=== PATIENT | male | born 1955 | race Caucasian/White ===

== ENCOUNTER 2018-03-24 20:58 | Observation (INO) | payer OTHER ==
[~2018-03-24] VITALS: Ht 172.7 cm; Wt 62.9 kg
[~2018-03-24 20:58] MED LIST: ALBU90OI61 INH; CYCL10 PO; Cleocin HCl300 MG PO; DULO30 PO; Depo-Medro80 MG/1 ML IJ; FERR325 PO; HYDR1TAB94 PO; IBUP400 PO; LEVSOD50 PO; LISI5 PO; METO25; Omeprazole20 M1 PO; PENVK500 PO; PERIDEX15 ML PO; Percocet 5-3251 EACH PO; SILD50TA PO
[2018-03-24 21:38] LABS: BASOPHILS ABSOLUTE AUTO 0.02 K/mm3 (0.00-0.23); BASOPHILS PERCENT AUTO 0 % (0-2); EOSINOPHILS PERCENT AUTO 0 % (0-6); Hematocrit 41.6 % (37.0-53.0); Hemoglobin 14.4 g/dL (13.5-17.5); IMMATURE GRAN ABSOLUTE AUTO 0.08 K/mm3 (0.00-0.10); IMMATURE GRAN PERCENT AUTO 1 % (0-1); LYMPHOCYTES ABSOLUTE AUTO 1.05 K/mm3 (0.84-5.20); LYMPHOCYTES PERCENT AUTO 8 % (21-46); MONOCYTES ABSOLUTE AUTO 0.72 K/mm3 (0.16-1.47); MONOCYTES PERCENT AUTO 6 % (4-13); Mean Corpuscular HGB 32.7 pg (26.0-34.0); Mean Corpuscular HGB Conc 34.6 g/dL (31.5-36.5); Mean Corpuscular Volume 95 fL (80-100); Mean Platelet Volume 9.2 fL (9.1-12.4); NEUTROPHILS ABSOLUTE AUTO 11.18 K/mm3 (1.96-9.15); NEUTROPHILS PERCENT AUTO 86 % (41-73); Platelet Count 479 K/mm3 (150-400); RDW Coefficient Variation 13.6 % (11.7-14.2); RDW Standard Deviation 47.4 fL (35.1-46.3); White Blood Cell Count 13.05 K/mm3 (4.00-11.30)
[2018-03-24 21:45] LABS: Calcium, Ionized (POC) 1.06 mmol/L (1.10-1.46); Chloride (POC) 89 mmol/L (98-108); Creatinine (POC) 1.9 mg/dL (0.8-1.3); Glucose (ISTAT POC) 219 mg/dL (70-99); Hemoglobin (POC) 15.6 g/dL (13.5-17.5); Potassium (POC) 3.7 mmol/L (3.5-5.5); Sodium (POC) 129 mmol/L (135-148); Total CO2 (POC) 17 mmol/L (21-32)
[2018-03-24 21:56] LABS: Albumin/Globulin Ratio 0.9 (0.8-1.8); Bilirubin, Total 1.2 mg/dL (0.1-1.0); Bun/Creatinine Ratio 11.1 (12.0-20.0); Calcium, Blood 9.6 mg/dL (8.5-10.1); Creatinine, Blood 1.89 mg/dL (0.60-1.20); Globulin, Blood 4.6 g/dL (2.2-4.0); Magnesium, Blood 1.5 mg/dL (1.6-2.4); Potassium, Blood 3.7 mmol/L (3.5-5.5); Total Protein, Blood 8.6 g/dL (6.4-8.2); Troponin I 0.019 ng/mL (0.000-0.040)
[2018-03-24 23:05] LABS: Base Excess Venous 1.6 mmol/L; Bicarbonate Venous 26.1 mmol/L (24.0-30.0); PCO2 Venous 34.2 mmHg (38-42); PO2 Venous 87.1 mmHg (38-42); pH Blood Venous 7.48 (7.34-7.37)
[2018-03-24 23:58] LABS: Source, Urine Voided
[2018-03-25 00:06] LABS: Bilirubin, Urine Neg (Neg); Blood, Urine 1+ (Neg); Glucose Qualitative, Urine Neg (Neg); Ketones, Urine 2+ (Neg); Leukocyte Esterase, Urine Neg (Neg); Nitrite, Urine Neg (Neg); Protein, Urine 2+ (Neg); Specific Gravity, Urine 1.015 (1.003-1.022); Urobilinogen, Urine NORM (Normal)
[2018-03-25 00:10] LABS: Appearance, Urine Clear (Clear); Color, Urine Yellow (P-Yellow)
[2018-03-25 00:14] LABS: Amorphous Light (0-Heavy); Bacteria Mod /hpf; Squamous Epithelial Cells Not Seen /hpf (Few); White Blood Cells, Urine 0-2 /hpf (0-5)
[2018-03-25 00:17] LABS: U Amphetamine Screen Not Detected; U Barbituate Screen Not Detected; U Benzodiazapine Screen Not Detected; U Buprenorphine Screen Not Detected; U Cannabinoids Screen DETECTED; U Cocaine Screen Not Detected; U Methadone Screen Not Detected; U Methamphetamine Screen Not Detected; U Opiates Screen Not Detected; U Oxycodone Screen Not Detected; U Phencyclidine Screen Not Detected; U Propoxyphene Screen Not Detected
[2018-03-25 01:49] LABS: CPK Creatine Kinase 232 U/L (39-308)
--- NOTE | 2018-03-25 02:51 | NUR ---
ADMISSION: PATIENT ARRIVED TO U7 AT APPROX 0130 VIA GURNEY FROM ER. PATIENT ABLE TO PIVOT TRANSFER WITH 2 PERSON ASSIST, GAIT IMPAIRED. PATIENT ORIENTED TO SELF ONLY, FOLLOWING COMMANDS BUT NOT RELIABLE SOURCE OF INFORMATION. MAGNESIUM 1.5, LACTIC 4.0, NA 128 MD NOTIFIED AND ORDERS RECIEVED. PATIENT PASSED BEDSIDE SWALLOW, MD NOTIFIED AND ORDERS RECIEVED. NEURO: PATIENT UNABLE TO ANSWER RELIABLY FOR TESTING OF SENSATION OR PERIPHERAL VISION. PATIENT DISPLAYING LEFT SIDED WEAKNESS, LEFT SIDED PRONATOR DRIFT, LEFT FACIAL DROOP, LEFT TONGUE DEVIATION. PATIENT DISPLAYING SLURRED SPEECH BUT DOES NOT HAVE DENTURES IN. PATIENT ABLE TO IDENTIFY OBJECTS CORRECTLY.
[2018-03-25 05:31] LABS: Hematocrit 37.6 % (37.0-53.0); Hemoglobin 13.3 g/dL (13.5-17.5); Mean Corpuscular HGB 33.3 pg (26.0-34.0); Mean Corpuscular HGB Conc 35.4 g/dL (31.5-36.5); Mean Corpuscular Volume 94 fL (80-100); Platelet Count 457 K/mm3 (150-400); RDW Coefficient Variation 13.7 % (11.7-14.2); RDW Standard Deviation 47.3 fL (35.1-46.3); Red Blood Cell Count 3.99 M/mm3 (4.30-5.90); White Blood Cell Count 12.31 K/mm3 (4.00-11.30)
[2018-03-25 05:53] LABS: Albumin, Blood 3.9 g/dL (3.4-5.0); Albumin/Globulin Ratio 0.9 (0.8-1.8); Bilirubin, Total 0.6 mg/dL (0.1-1.0); Bun/Creatinine Ratio 11.9 (12.0-20.0); Calcium, Blood 9.1 mg/dL (8.5-10.1); Creatinine, Blood 2.02 mg/dL (0.60-1.20); Globulin, Blood 4.5 g/dL (2.2-4.0); Potassium, Blood 3.6 mmol/L (3.5-5.5); Total Protein, Blood 8.4 g/dL (6.4-8.2)
--- NOTE | 2018-03-25 06:26 | NUR ---
SHIFT SUMMARY: PATIENT COOPERATIVE THIS SHIFT, 2MG OF MG GIVEN TO REPLACE 1.5MG, LACTIC IMPROVING. BED LOW AND LOCKED WITH EXIT ALARM ON AND CALL LIGHT WITHIN REACH. PATIENT HAS NOT ATTEMPTED TO GET OOB, VSS.
--- NOTE | 2018-03-25 09:35 | NUR ---
PT TO MRI
--- NOTE | 2018-03-25 16:33 | NUR ---
BLADDER SCAN PER ORDERS BLADDER SCAN DONE Q SHIFT. 20ML FOUND IN BLADDER. PT REPORTS DOES NOT PRODUCE MUCH URINE AT BASELINE.
--- NOTE | 2018-03-25 17:30 | NUR ---
SHIFT SUMMARY PT RESTING IN ROOM COMFORTABLY WITH FAMILY AT BEDSIDE. PT HAD NO ACUTE CHANGES IN STATUS TODAY. MRI AND EEG WERE BOTH DONE TODAY. AWAITING RESULTS TO ASSESS FOR POSS DC TOMORROW. PT HAS 500ML BOLUS IV NS INFUSING IN PIV. RESP EVEN UNLABORED. SKINS PWD. NO SEIZURE ACTIVITY TODAY. PT DID NOT PRODUCE ANY URINE TODAY. BLADDER SCAN DONE PER ORDERS. SEE NOTES. PT REPORTS NORMAL. L ARM REMAINS EDEMATOUS. IV REMOVED FROM LW. EDEMA IS NONPITTING. EDEMA HAS NOT INCREASED THS SHIFT. CALL LIGHT IS IN REACH. WILL CONT TO MONITOR.
[2018-03-26 04:22] LABS: Bun/Creatinine Ratio 16.5 (12.0-20.0); Calcium, Blood 8.7 mg/dL (8.5-10.1); Creatinine, Blood 1.7 mg/dL (0.60-1.20); Potassium, Blood 3.1 mmol/L (3.5-5.5)
--- NOTE | 2018-03-26 07:23 | NUR ---
SHIFT SUMMARY PATIENT PLEASENT AND COOPERATIVE THORUGHOUT THE NIGHT. PATIENT APPEARED TO SLEEP WELL WITH NO COMPLAINTS OF PAIN OR DISCOMFORT. VITAL SIGNS CHARTED. WILL CONTINUE TO MONITOR PATIENT AND REPORT TO ONCOMING RN.
[2018-03-26] MEDS ORDERED: LEVE500 PO (08:28)
[2018-03-26] MEDS ORDERED: ASPI81CH PO (08:29)
== END 2018-03-26 12:40 | disposition home or self-care (01) ==
LOC: ER 20:58 → PCU 20:59 → ER 03-25 01:45 → PCU 03-25 01:53 → ER 03-25 01:53 → PCU 03-25 01:53
PROVIDERS: Emergency Medicine; Internal Medicine; ADMIT Internal Medicine
DX: R11.2 Nausea with vomiting, unspecified (principal); G93.40 Encephalopathy, unspecified; N17.9 Acute kidney failure, unspecified; R56.9 Unspecified convulsions; K30 Functional dyspepsia; F17.210 Nicotine dependence, cigarettes, uncomplicated; R79.89 Other specified abnormal findings of blood chemistry; Z88.5 Allergy status to narcotic agent; Z79.899 Other long term (current) drug therapy
CPT/HCPCS: 36415; 51702; 70450; 70544; 71045; 80047; 80048; 80053; 81001; 82010; 82550; 82803; 82947; 83605; 83735; 84145; 84484; 85014; 85025; 85027; 87086; 90686; 93005; 93010; 95819; 96365; 96375; 99285-25; J1650; J1953; J2060; J2405; J3475; J3480; J7030

== ENCOUNTER 2018-12-18 08:29 | Inpatient (IN) | payer OTHER ==
[~2018-12-18] VITALS: Ht 172.7 cm; Wt 58.7 kg
[~2018-12-18 08:29] MED LIST changes: +ASPI81CH PO; +LEVE500 PO
--- NOTE | 2018-12-18 13:05 | NUR ---
History, Chart, Medications and Allergies reviewed before start of procedure. Patient confirms NPO status and agrees with scheduled surgery. Patient States Post-Procedure ride home has been arranged with his girlfriend, Radha.
[2018-12-18] MEDS ORDERED: METO25 PO (13:49)
[2018-12-18] MEDS ORDERED: LEVSOD50 PO (13:50)
[2018-12-18] MEDS ORDERED: DULOXETINE HCL40 MG PO (13:50)
[2018-12-18] MEDS ORDERED: PERIDEX15 ML MM (13:51)
[2018-12-18] MEDS ORDERED: LEVE500 PO (13:51)
[2018-12-18] MEDS ORDERED: HYDR1TAB94 PO (13:52)
[2018-12-18] MEDS ORDERED: IBU800 MG PO (13:53)
[2018-12-18] MEDS ORDERED: ONDA4 PO (13:53)
--- NOTE | 2018-12-18 13:55 | NUR ---
DR RESENDEZ AND DR RAGSDALE SPEAKING WITH PATIENT AND HIS FAMILY/SIGNIFIICANT OTHER ABOUT RESCHEDULING HIS PROCEDURE AFTER A TRACH IS PLACED. PROCEDURE CANCELLED. IV METOPROLOL NOT GIVEN SINCE PROCEDURE CANCELLED.
[2018-12-18] MEDS ORDERED: CYCL10 PO (13:58)
--- NOTE | 2018-12-18 14:48 | NUR ---
REPORT GIVEN TO ANDER JULIAN RN.
--- NOTE | 2018-12-18 16:03 | NUR ---
REPORT GIVEN TO NANDO RN, PATIENT TO TRANSFER TO ROOM 328.
[2018-12-18 18:37] LABS: BASOPHILS ABSOLUTE AUTO 0.06 K/mm3 (0.00-0.23); BASOPHILS PERCENT AUTO 0 % (0-2); EOSINOPHILS ABSOLUTE AUTO 0.02 K/mm3 (0.00-0.68); EOSINOPHILS PERCENT AUTO 0 % (0-6); Hematocrit 33.7 % (37.0-53.0); Hemoglobin 10.9 g/dL (13.5-17.5); IMMATURE GRAN ABSOLUTE AUTO 0.06 K/mm3 (0.00-0.10); IMMATURE GRAN PERCENT AUTO 0 % (0-1); LYMPHOCYTES ABSOLUTE AUTO 1.44 K/mm3 (0.84-5.20); LYMPHOCYTES PERCENT AUTO 9 % (21-46); MONOCYTES ABSOLUTE AUTO 0.82 K/mm3 (0.16-1.47); MONOCYTES PERCENT AUTO 5 % (4-13); Mean Corpuscular HGB 32.7 pg (26.0-34.0); Mean Corpuscular HGB Conc 32.3 g/dL (31.5-36.5); Mean Platelet Volume 9.3 fL (9.1-12.4); NEUTROPHILS ABSOLUTE AUTO 14.43 K/mm3 (1.96-9.15); NEUTROPHILS PERCENT AUTO 86 % (41-73); Platelet Count 547 K/mm3 (150-400); RDW Coefficient Variation 16.9 % (11.7-14.2); RDW Standard Deviation 62.6 fL (35.1-46.3); Red Blood Cell Count 3.33 M/mm3 (4.30-5.90); White Blood Cell Count 16.83 K/mm3 (4.00-11.30)
[2018-12-18 18:38] LABS: Mean Corpuscular Volume 101 fL (80-100)
[2018-12-18 18:56] LABS: Albumin, Blood 3.2 g/dL (3.4-5.0); Anion Gap 7 mmol/L (6-16); Blood Urea Nitrogen 23 mg/dL (8-24); Bun/Creatinine Ratio 30.2 (12.0-20.0); CO2, Blood 25 mmol/L (21-32); Calcium, Blood 11.2 mg/dL (8.5-10.1); Chloride, Blood 100 mmol/L (98-108); Creatinine, Blood 0.76 mg/dL (0.60-1.20); Glomerular Filtration Rate >60 (60-); Glucose, Blood 96 mg/dL (70-99); Phosphorus, Blood 2.4 mg/dL (2.5-4.9); Sodium, Blood 132 mmol/L (136-145)
--- NOTE | 2018-12-18 19:00 | NUR ---
SHIFT SUMMARY 1620 RECEIVED PT TO FROM DAY SX. 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 PT TO RECEIVE RADIATION FOR TUMOR AND WILL NEED PEG TUBE PLACEMENT FOR NUTRITIONAL TX. PER REPORT, ANESTHESIA SAID PT TO HIGH RISK DUE TO TUMOR. ORDERS TO CONSULT DR OBANDO FOR TRACHEOSTOMY, BUT TOLD BY ANS THAT DR OBANDO DOES NOT DO CONSULTS. DR GEE NOTIFIED. PT NPO D/T "EVERYTHING HE SWALLOWS GOES INTO HIS LUNGS", PER GIRL FRIEND. PT STILL SMOKING 1/2-1/3 PK/DAY. ALL MEDS TO BE GIVEN IV AT THIS TIME. PT REPORTED NO BM X4 DAYS. DR GEE INFORMED, SUPPOSITORY ORDERED. SWABS AND LIP BALM GIVEN FOR PT COMFORT. MULTIPLE FAMILY IN SINCE ADMISSION. NO C/O. CALL LT IN REACH.
[2018-12-19 05:11] LABS: BASOPHILS ABSOLUTE AUTO 0.06 K/mm3 (0.00-0.23); BASOPHILS PERCENT AUTO 0 % (0-2); EOSINOPHILS ABSOLUTE AUTO 0.02 K/mm3 (0.00-0.68); EOSINOPHILS PERCENT AUTO 0 % (0-6); Hemoglobin 9.7 g/dL (13.5-17.5); IMMATURE GRAN ABSOLUTE AUTO 0.12 K/mm3 (0.00-0.10); IMMATURE GRAN PERCENT AUTO 1 % (0-1); LYMPHOCYTES ABSOLUTE AUTO 1.46 K/mm3 (0.84-5.20); LYMPHOCYTES PERCENT AUTO 7 % (21-46); MONOCYTES ABSOLUTE AUTO 1.23 K/mm3 (0.16-1.47); MONOCYTES PERCENT AUTO 6 % (4-13); Mean Corpuscular HGB 32.4 pg (26.0-34.0); Mean Corpuscular HGB Conc 32.3 g/dL (31.5-36.5); Mean Corpuscular Volume 100 fL (80-100); Mean Platelet Volume 9.3 fL (9.1-12.4); NEUTROPHILS ABSOLUTE AUTO 17.54 K/mm3 (1.96-9.15); NEUTROPHILS PERCENT AUTO 86 % (41-73); Platelet Count 520 K/mm3 (150-400); RDW Coefficient Variation 16.8 % (11.7-14.2); RDW Standard Deviation 61.8 fL (35.1-46.3); Red Blood Cell Count 2.99 M/mm3 (4.30-5.90); White Blood Cell Count 20.43 K/mm3 (4.00-11.30)
--- NOTE | 2018-12-19 05:19 | NUR ---
SHIFT SUMMARY NO ISSUES NOTED. PT HAS SLEPT SINCE FAMILY LEFT FOR THE NIGHT. PT HAS REMAINED NPO. PT CURRENTLY SLEEPING AND BREATHING EASY. CALL LIGHT IN REACH.
[2018-12-19 05:50] LABS: Anion Gap 8 mmol/L (6-16); Blood Urea Nitrogen 22 mg/dL (8-24); Bun/Creatinine Ratio 32.8 (12.0-20.0); CO2, Blood 23 mmol/L (21-32); Calcium, Blood 10.3 mg/dL (8.5-10.1); Chloride, Blood 103 mmol/L (98-108); Creatinine, Blood 0.67 mg/dL (0.60-1.20); Glomerular Filtration Rate >60 (60-); Glucose, Blood 103 mg/dL (70-99); Sodium, Blood 134 mmol/L (136-145)
--- NOTE | 2018-12-19 19:46 | NUR ---
DISCHARGE SUMMARY: PATIENT SLEPT MUCH OF THE DAY. PATIENT REPORTED RELIEF FROM BACK PAIN WITH LIDOCAINE PATCH AND K-PAD. PATIENT DENIED URGE TO VOID THIS MORNING. BLADDER SCAN WAS OVER 500. NOTIFIED DR. MCNALLY. NEW ORDER FOR PRN STRAIGHT CATH. PRIOR TO PLACING CATH, PATIENT ABLE TO AMBULATE TO THE RESTROOM AND VOID 450 OF DARK YELLOW URINE. AT THE END OF SHIFT, PATIENT'S BLADDER SCAN WAS 324. PATIENT DENIED NEED TO VOID. PATIENT HAS HAD INTERMITTANT FEVER, WITH THE HIGHEST AT 100.7. PATIENT DENIED DISCOMFORT. TEMPERATURE DECREASED TO 98.5 BY DECREASING ROOM TEMPERATURE AND REMOVING BLANKET. PATIENT REFUSED SUPPOSITORY. PATIENT IS CALM AND COOPERATIVE. HE IS AWARE OF AND IN AGREEMENT OF THE PLAN FOR HIS PEG PLACEMENT. NURSING NOTIFY NOTE PLACED FOR RN ON FRIDAY TO CALL IN ENT CONSULTATION. (DR. OBANDO WILL NOT ACCEPT CONSULTATION UNTIL HE IS ON-CALL).
[2018-12-20 06:03] LABS: BASOPHILS ABSOLUTE AUTO 0.07 K/mm3 (0.00-0.23); BASOPHILS PERCENT AUTO 1 % (0-2); EOSINOPHILS ABSOLUTE AUTO 0.11 K/mm3 (0.00-0.68); EOSINOPHILS PERCENT AUTO 1 % (0-6); Hematocrit 30.5 % (37.0-53.0); IMMATURE GRAN PERCENT AUTO 1 % (0-1); LYMPHOCYTES ABSOLUTE AUTO 1.29 K/mm3 (0.84-5.20); LYMPHOCYTES PERCENT AUTO 10 % (21-46); MONOCYTES ABSOLUTE AUTO 0.88 K/mm3 (0.16-1.47); MONOCYTES PERCENT AUTO 7 % (4-13); Mean Corpuscular HGB 33.1 pg (26.0-34.0); Mean Corpuscular HGB Conc 32.8 g/dL (31.5-36.5); Mean Corpuscular Volume 101 fL (80-100); Mean Platelet Volume 9.4 fL (9.1-12.4); NEUTROPHILS ABSOLUTE AUTO 11.09 K/mm3 (1.96-9.15); NEUTROPHILS PERCENT AUTO 82 % (41-73); Platelet Count 509 K/mm3 (150-400); RDW Coefficient Variation 16.9 % (11.7-14.2); RDW Standard Deviation 62.9 fL (35.1-46.3); Red Blood Cell Count 3.02 M/mm3 (4.30-5.90); White Blood Cell Count 13.54 K/mm3 (4.00-11.30)
[2018-12-20 06:26] LABS: Albumin, Blood 2.4 g/dL (3.4-5.0); Anion Gap 9 mmol/L (6-16); Blood Urea Nitrogen 18 mg/dL (8-24); Bun/Creatinine Ratio 30.9 (12.0-20.0); CO2, Blood 23 mmol/L (21-32); Calcium, Blood 9.7 mg/dL (8.5-10.1); Chloride, Blood 105 mmol/L (98-108); Creatinine, Blood 0.58 mg/dL (0.60-1.20); Glomerular Filtration Rate >60 (60-); Glucose, Blood 83 mg/dL (70-99); Phosphorus, Blood 1.7 mg/dL (2.5-4.9); Potassium, Blood 3.7 mmol/L (3.5-5.5); Sodium, Blood 137 mmol/L (136-145)
--- NOTE | 2018-12-20 06:26 | NUR ---
SHIFT SUMMARY NO ACUTE CHANGES OVERNIGHT. PATIENT NPO. IV PATENT. PATIENT STATED HE WOULD URINATE IN THE MORNING WHEN HE WAS READY TO WAKE UP AND REFUSED BLADDER SCAN. WILL CONTINUE TO MONITOR AND REPORT TO ONCOMING RN.
--- NOTE | 2018-12-20 18:16 | NUR ---
SHIFT SUMMARY PT AXO, PLEASANT AND COOPERATIVE WITH CARE. COMPLAINED OF THROAT AND JAW PAIN, MEDICATED PER EMAR WITH LITTLE EFFECT. THIS NURSE CALLED DR. GEE TO DISCUSS PAIN MEDICATION, SEE ORDERS. PT EDUCATED ON IDICATION OF NPO STATUS AND PAIN CONTROL. SUCTION SET UP IN PT ROOM, PT SUCTIONING INDEPENDETLY PRN WITH A MODERATE AMOUNT OF YELLOW, THICK SECRETIONS OUT. IV PATENT AND INFUSING PER EMAR. PT VOIDED ONCE THIS SHIFT AND PVR WAS NOT MEASURED AT THAT TIME. PT REFUSES TO ATTEMPT TO URINATE AT THIS TIME. SINUS RHYTHM WITH PVC'S AT 83 PER FILM TECHNICIAN. BED IN LOW POSITION, CALL LIGHT WITHIN REACH. UP WITH 1 ASSIST TO BATHROOM.
--- NOTE | 2018-12-21 05:03 | NUR ---
SHIFT SUMMARY PLAN IS FOR PT TO HAVE TRACH PLACED BEFORE PEG TUBE CAN BE PLACED. DR OBANDO WILL NEED TO BE CONSULTED TODAY BY DAYSHIFT RN, DOES NOT ALLOW OVERNIGHT/WEEKEND CALLS. WILL PASS OFF IN REPORT. PT IS A&OX4, 1 PER ASSIST TO BR. BLADDER SCAN 120 ML AFTER VOID. NO STRAIGHT CATH INDICATED. NPO, PT USING SWABS AND SUCTIONING INDEPENDENTLY. PT C/O 10/10 JAW PAIN, 50 MCG FENTANYL Q4H, PROVIDES SOME RELIEF. CLINIMIX @ 75 ML/HR. WILL CONT TO MONITOR AND PROVIDE CARE UNTIL PRESUMED BY ONCOMING RN.
[2018-12-21 05:37] LABS: BASOPHILS ABSOLUTE AUTO 0.08 K/mm3 (0.00-0.23); BASOPHILS PERCENT AUTO 1 % (0-2); EOSINOPHILS ABSOLUTE AUTO 0.18 K/mm3 (0.00-0.68); EOSINOPHILS PERCENT AUTO 2 % (0-6); Hematocrit 30.4 % (37.0-53.0); Hemoglobin 9.9 g/dL (13.5-17.5); IMMATURE GRAN ABSOLUTE AUTO 0.09 K/mm3 (0.00-0.10); IMMATURE GRAN PERCENT AUTO 1 % (0-1); LYMPHOCYTES ABSOLUTE AUTO 1.54 K/mm3 (0.84-5.20); LYMPHOCYTES PERCENT AUTO 15 % (21-46); MONOCYTES ABSOLUTE AUTO 0.84 K/mm3 (0.16-1.47); MONOCYTES PERCENT AUTO 8 % (4-13); Mean Corpuscular HGB Conc 32.6 g/dL (31.5-36.5); Mean Platelet Volume 9.2 fL (9.1-12.4); NEUTROPHILS ABSOLUTE AUTO 7.76 K/mm3 (1.96-9.15); NEUTROPHILS PERCENT AUTO 74 % (41-73); Platelet Count 527 K/mm3 (150-400); RDW Coefficient Variation 16.4 % (11.7-14.2); RDW Standard Deviation 59.2 fL (35.1-46.3); Red Blood Cell Count 3.09 M/mm3 (4.30-5.90); White Blood Cell Count 10.49 K/mm3 (4.00-11.30)
[2018-12-21 05:40] LABS: Mean Corpuscular Volume 98 fL (80-100)
[2018-12-21 05:57] LABS: Albumin, Blood 2.3 g/dL (3.4-5.0); Anion Gap 7 mmol/L (6-16); Blood Urea Nitrogen 14 mg/dL (8-24); Bun/Creatinine Ratio 26.8 (12.0-20.0); CO2, Blood 25 mmol/L (21-32); Calcium, Blood 9.7 mg/dL (8.5-10.1); Chloride, Blood 102 mmol/L (98-108); Creatinine, Blood 0.52 mg/dL (0.60-1.20); Glomerular Filtration Rate >60 (60-); Glucose, Blood 117 mg/dL (70-99); Phosphorus, Blood 1.9 mg/dL (2.5-4.9); Potassium, Blood 3.5 mmol/L (3.5-5.5); Sodium, Blood 134 mmol/L (136-145)
--- NOTE | 2018-12-21 08:52 | NUR ---
DR. OBANDO'S OFFICE NOTIFIED OF REFERAL.
--- NOTE | 2018-12-21 10:28 | NUR ---
Met with patient to review need. Pt maun complaint right now is constipation. He denies headaches or blurred vision pt very hard of hearing and speaking is labored. He sates he has constant pain to mouth and throat. no nausea, pt states he is able to sleep well. Pt demonstrated understanding of plan of care and consult with doctor Nichole. pt states he has a will and POA and directives at home. He states his family is aware of the consult. will follow up with family and complet a polst with patient. After speaking with patient best plan is to have family present when polst completed.
--- NOTE | 2018-12-21 10:38 | NUR ---
attetmpted to call family no answer
--- NOTE | 2018-12-21 18:18 | NUR ---
SHIFT SUMMARY. A&OX3, DIFFICULT TO UNDERSTANDING SOME WORDS SECONDARY TO PAST JAW SURGERY. PT IS COOPERTIVE AND PLEASANT. PT WITH CONSTANT JAW AND BACK PAIN, PT REPORTS MODERATE RELIEF WITH LIDOCAINE PATCH TO BACK AND NECK AND IV FENTANYL. NO N/V, PT WITH SOB WITH EXERTION, RA. PT HAD LG BM THIS AFTERNOON, PT RECIEVED BISACODYL SUPPOSITORY THIS MORNING. DR. OBANDO IN TO CONSULT THIS AFTERNOON, RECIEVED CALL FROM HIS OFFICE THAT HE IS PLANNING ON SURGERY ON ABOUT 1200. FAMILY WAS AT BEDSIDE AT TIME OF CONSULT.
--- NOTE | 2018-12-22 05:03 | NUR ---
SHIFT SUMMARY PLAN IS FOR PT TO HAVE TRACH PROCEDURE DONE FRIDAY. PT STRICT NPP, RECIEVING CLINIMIX @ 75 ML/HR. MOUTH SWABS AND SUCTIONS INDEPENDENTLY PRN. TELE IN PLACE; NSR c PVCs @ 76 BPM. PVR 125 ML, NO STRAIGHT CATH INDICATED. 50 MCG FENTANYL ADMINSITERED Q4H FOR JAW PAIN. WILL CONT TO MONITOR AND PROVIDE CARE UNTIL PRESUMED BY ONCOMING RN.
--- NOTE | 2018-12-22 19:07 | NUR ---
SHIFT SUMMARY. PT C/O PAIN TO BACK, NECK, AND JAW THAT IS CONSTANT THROUGHOUT SHIFT, PT REPORTS RELIEF WITH CURRENT ORDERS. PT REPORTS MILD SOB WITH EXERTION, PT WITH INCREASED WEAKNESS AFTER SHOWER THIS AFTERNOON REQUIRING SITTING BREAK FROM BATHROOM TO BED. NO N/V. LOVENOX HELD THIS AM PT IS SCHEDULED FOR SURGERY TOMORROW. NO NEW CHANGES OR CONCERNS.
--- NOTE | 2018-12-23 06:01 | NUR ---
SHIFT SUMMARY PLAN FOR PT TO UNDERGO TRACHEOSTOMY TODAY AT NOON. PT STRICT NPO, SUCTIONING AND MOUTH SWABS INDEPENDENTLY. CLINIMIX RUNNING @ 75 ML/HR. PT REPORTS CONSTANT PAIN TO JAW, NECK, BACK. 50 MCG FENTANYL Q4H GIVEN, PROVIDES ADEQUATE RELIEF. VOIDS SEVERAL TIMES TONIGHT, PVR <100 ML. RESP E/U ON RA, VSS, AFEBRILE. DENIES ANY N/V/D. WILL CONT TO MONITOR AND PROVIDE CARE UNTIL PRESUMED BY ONCOMING RN.
--- NOTE | 2018-12-23 11:15 | NUR ---
INTO SDS VIA BED. PT A&OX3. DENIES PAIN AT THIS TIME. BP 172/107- MADE AWARE-NO NEW ORDERS AT THIS TIME. LUNGS COARSE T/O, BUT MAINTAINING SATS>90% ON RA. DR. WU AWARE OF ADVENTITIOUS LUNG SOUNDS. HISTORY AND ALLERGIES REVIEWED. NPO STATUS CONFIRMED. PT TO GO TO ICU POST OP-NURSING POLLUTION CONTROL ENGINEER CONTACTED FOR BED PLACEMENT.
--- NOTE | 2018-12-23 11:30 | NUR ---
PT LEFT UNIT AT 11:10 VIA GURNEY TO OR.
--- NOTE | 2018-12-23 12:47 | NUR ---
12/23/18 [place] PATIENT ON SCHEDULED ABX. DR. OBANDO INJECTED 2 CC'S 1% LIDOCAINE WITH EPI 1:200,00 AND 1 CC 4% LIDOCAINE INTO NECK BEFORE START OF CASE. ALL COUNTS CORRECT. PATIENT TO HAVE PEG TUBE PLACEMENT AFTER CASE WITH DS PERSONNEL IN ROOM 4.
--- NOTE | 2018-12-23 12:49 | NUR ---
PREPARING FOR PEG TUBE PLASCEMENT PATIENT CONTINUES TO BE MOJNITORED BY ANNESTHESIOLOGIST AFTER TRACHE SURGERY.
--- NOTE | 2018-12-23 12:54 | NUR ---
CALLED REPORT TO ICU 4 NURSE.
--- NOTE | 2018-12-23 14:25 | NUR ---
ASSUMED CARE PT. ARRIVES POST SURGERY. PT. ALERT UPON ARRIVAL TO UNIT. HR IN THE 90S-LOW 100S. HYPERTENSIVE UPON ARRIVAL. PT TRACH #8 SECURED WITH SUTURES. PT HAS HARSH PRODUCTIVE COUGH, THICK YELLOW/RED COLORED SECRETIONS SUCTIONED. PT. PLACED ON T PIECE UPON ARRIVAL WITH FLOW AT 28%, PT SPO2 98-100%. SOME OOZING FROM SUTURE SITES ON TRACH, CLEANED AND GAUZE PLACED. PT. LS COARSE IN THE BASES UPON ARRIVAL. PEG TUBE ALSO PLACED IN OR, CLAMPED FOR [address] RESENDEZ. PLANS FOR TRICKLE FEED TO BE STARTED THIS PM. PT MAE. GARCIAGGER IN PLACE DUE TO LOW TEMP UPON ARRIVAL FROM OR. WILL CONTINUE TO MONITOR CLOSELY. OBTURATOR PLACED AT BEDSIDE. CALL LIGHT IN REACH.
--- NOTE | 2018-12-23 15:38 | NUR ---
PT FAMILY AT BEDSIDE, UPDATED ON PT CONDITION. PT. PROVIDED ORAL SUCTION SO PT CAN SUCTION SELF. COPIOUS AMOUNT OF SECRETIONS NOTED BOTH FROM TRACH AND ORAL. PT. PROVIDED WITH CLIP BOARD AND PAPER FOR COMMUNICATION. PT. WRITING ON PAPER THAT HE IS IN PAIN. CALL TO DR. GEE FOR ADDITIONAL PAIN MEDICATIONS. VSS. CALL LIGHT IN REACH.
--- NOTE | 2018-12-23 18:35 | NUR ---
SHIFT SUMMARY PT REMAINS ALERT POST SURGERY. ANSWERS QUESTIONS BY SHAKING HEAD YES AND NO AND WRITING ON PAPER. PT. LS COARSE T/O LARGE AMOUNT OF THICK YELLOW/RED SECRETIONS NOTED FROM TRACH HOWEVER HAVE REDUCED SINCE ARRIVAL. PT. USES CALL LIGHT NEEDED. VSS T/O SHIFT. MED TWICE FOR PAIN. CALL LIGHT AND ORAL SUCTION AT BEDSIDE.
--- NOTE | 2018-12-23 19:30 | NUR ---
[place] of Care: Care assumed at 1900hr. Patient alert, sitting upright in bed watching tv. Patient unable to verbalize, but able to nod head yes/no, and write needs on paper. New trach #8 placed today, appears wnl. Trach appliance sutured in place, minimal serosanguineous drainage noted around appliance. T-peice connected to trach with humidified air, 28% FiO2, O2- 96-98%, patient denies dyspnea/SOB. Patient c/o pain to neck/trach, effectively managed with prn fentanyl. PEG tube to mid-ABD, dressing C/D/I. Voided using urinal in bed without difficulty. Peripheral IV x2 to rt arm patent and intact. Call light in reach, makes needs known. Will continue to monitor for pain, safety, comfort.
--- NOTE | 2018-12-24 05:58 | NUR ---
Shift Summary: Patient slept well throughout shift. T-peice to trach switched to humidified air only by RT Thanh early in shift, O2% remained 95-98%. Patient continues to deny dyspnea/SOB. Very scant amount of thick blood tinged secretions noted from trach. Trach stoma drainage slowed throughout shift, now only scant amount of serosanguineous drainage, remains sutured and in place. PEG tube remains patent and intact, flushed with 30-60ml H2O x2 this shift. Voided using urinal x1 this shift for 500ml, denies further need to void at this time. Peripheral IV's remain patent and intact. Call light in reach, makes needs known. Will continue to monitor until report to day shift RN.
--- NOTE | 2018-12-24 07:57 | NUR ---
ASSUMED CARE PT. REMAINS ALERT THIS AM. SHAKES HEAD YES TO PAIN AND POINTS TO TRACH. MED PER ORDER FOR PAIN. MINIMAL SECRETIONS NOTED THIS AM ORALLY AND SMALL AMOUNT OF THICK RED TINGED, YELLOW SECRETIONS FROM TRACH. PT. REMAINS ON T-PIECE THIS AM ON RA, WITH HUMIDIFIED AIR. PT. ABLE TO REPOSITION SELF IN BED NEEDED FOR COMFORT. VOIDS USING THE URNIAL. VSS THIS AM. CALL LIGHT IN REACH.
--- NOTE | 2018-12-24 07:59 | NUR ---
DR. RESENDEZ IN TO SEE PT. PER DR. RESENDEZ OKAY FOR PT TO GO TO SURGICAL FLOOR TODAY. PLANS TO START FEEDING VIA PEG TUBE TODAY.
[2018-12-24 08:30] LABS: Anion Gap 8 mmol/L (6-16); Blood Urea Nitrogen 11 mg/dL (8-24); Bun/Creatinine Ratio 19.1 (12.0-20.0); CO2, Blood 25 mmol/L (21-32); Calcium, Blood 9.8 mg/dL (8.5-10.1); Chloride, Blood 99 mmol/L (98-108); Creatinine, Blood 0.58 mg/dL (0.60-1.20); Glomerular Filtration Rate >60 (60-); Glucose, Blood 93 mg/dL (70-99); Phosphorus, Blood 2.1 mg/dL (2.5-4.9); Potassium, Blood 3.5 mmol/L (3.5-5.5); Sodium, Blood 132 mmol/L (136-145)
--- NOTE | 2018-12-24 09:20 | NUR ---
SPOKE WITH DR. OBANDO REGADING STATUS CHANGE FOR PT PER DR. OBANDO PT TO BE PCU STATUS, FOR CLOSE AIRWAY MONITORING.
--- NOTE | 2018-12-24 09:50 | NUR ---
TUBE FEEDING STARTED VIA PEG TUBE ISOSOURCE 1.5 AT 15ML/HR
--- NOTE | 2018-12-24 11:03 | NUR ---
REPORT TO WINDOW SHADE CLOTH SEWER, PT TO TRANSFER TO PCU ROOM 10. PT AND FAMILY AWARE. PT. VSS. ALL BELONGINGS TAKEN TO PCU.
--- NOTE | 2018-12-24 14:41 | NUR ---
ASSUMED CARE OF PATIENT FROM ICU- Patient arrives to PCU in stable condition, alert & aware of surroundings, family with patient during transfer. Oriented to room, call light, staff. TF running at 15mls/hour continuous. Trach with humidified room air, [place] suction placed within patient's reach per ICU, RN suctions own oral secretions. 1245-Patient was medicated with Fentanyl approx. 25 minutes ago, reports pain 7/10 based on Faces scale on eraser board. Will give [place] per PEG and reassess. 1330-Patient reports pain 4/10 on Face scale and is dozing with family at bedside.
--- NOTE | 2018-12-24 18:57 | NUR ---
SHIFT SUMMARY- Patient up in recliner chair for short time per Preceptor, RN then back to bed. No acute changes.
--- NOTE | 2018-12-24 19:33 | NUR ---
GASTRIC RESIDUAL 20 CC. PEG TUBE FLUSHES RAPIDLY TO GRAVITY.
--- NOTE | 2018-12-24 21:30 | NUR ---
APPROX 1900: SHIFT CHANGE, REPORT RECIEVED FROM RUMA HAHN. APPROX 1920 TUBE FEED SET CHANGED, TF RATE INCREASED TO 35 PER MD ORDERS, BLOOD GLUCOSE OBTAINED, RESIDUAL WAS 10ML. BLADDER SCAN COMPLETED PATIENT ADMITTED TO NOT URINATING SINCE 219912/23/18. PATIENT HAD >568ML IN BLADDER PER SCAN, PATIENT WANTED TO TRY URINAL BEFORE ATTEMPTING A CATH.
--- NOTE | 2018-12-24 21:34 | NUR ---
APPROX 2029 PATIENT ABLE TO URINATE 450ML OF TEA COLORED URINE. CREATININE=0.58. MONITORING PATIENT VS,I&O AND MENTATION CAREFULLY.
--- NOTE | 2018-12-25 00:53 | NUR ---
ASSUMED CARE REPORT TAKEN FROM ESEQUIEL HAHN. PT SLEEPING AND NO COMPLAINTS AT THIS TIME.
--- NOTE | 2018-12-25 03:35 | NUR ---
TUBE FEEDING ADJUSTED TUBE FEEDING INCREASED TO 55ML/HR WHICH IS GOAL RATE. PT TOLERATING WELL, SITE LOOKS WNL.
[2018-12-25 04:10] LABS: Anion Gap 7 mmol/L (6-16); Blood Urea Nitrogen 13 mg/dL (8-24); Bun/Creatinine Ratio 19.6 (12.0-20.0); CO2, Blood 26 mmol/L (21-32); Calcium, Blood 9.5 mg/dL (8.5-10.1); Chloride, Blood 99 mmol/L (98-108); Creatinine, Blood 0.66 mg/dL (0.60-1.20); Glomerular Filtration Rate >60 (60-); Glucose, Blood 121 mg/dL (70-99); Magnesium, Blood 1.2 mg/dL (1.6-2.4); Potassium, Blood 3.4 mmol/L (3.5-5.5); Sodium, Blood 132 mmol/L (136-145)
--- NOTE | 2018-12-25 05:12 | NUR ---
SHIFT SUMMARY PT SLEEPING IN ROOM COMFORTABLY AT THIS TIME. NO ACUTE CHANGES IN STATUS T/O NIGHT. PT REPORTED PAIN MULTIPLE TIMES AND WAS MEDICATED PER EMAR. CONTINUOUS TUBE FEED INFUSING IN NEW PEG TUBE, FEEDING IS RUNNING AT 55ML/HR AT GOAL RATE. PT TOLERATING WELL. PT HAS TRACH W/ BLOW BY HUMIDIFIED O2, RESP EVEN UNLABORED W/ SATS >92%. PT WAS REPOSITIONIED AND BOOSTED IN BED NEEDED. PT ABLE TO REPOSITION SELF WELL. DENIED CP OR SOB. CALL LIGHT IN REACH.
--- NOTE | 2018-12-25 11:33 | NUR ---
ASSUMED CARE OF PATIENT 0710- Patient's saturations while in bed at 86%, HOB is elevated, but patient is down in the bed. Patient moved to recliner 1-2 person assist for tubing, oxygen saturations came up with repositioning and having patient DB&C. TF Residual check 30mls, tolerating TF at 55/hr. 1000-Patient asking if he had his Seizure medication, told him yes. Writes on note pad "I DON'T Want IT...makes me pass out". He's very adamant about this. Will address with Dr. Barton. 1054-c/o mid-epigastric pain, gave [place] and turned TF down to 35ml/hr.
--- NOTE | 2018-12-25 14:57 | NUR ---
PALLITATIVE CARE VISIT: REQUEST FOR VISIT RECEIVED PER DR/RN DUE TO PT'S REFUSAL TO TAKE KEPRA. EMR REVIEWED AND CASE CONFERENCED WITH PT'S RN PRIOR TO VISIT AND RN/DR AFTER MY VISIT. PT AGREEABLE TO VISIT AND CONVERSATION. HE CAN ONLY COMMUNICATE WITH WRITTEN NOTES. HE APPEARS TO HEAR AND UNDERSTAND OUR CONVERSATION BUT ALSO APPEARS VERY FATIGUED AND FRUSTRATED. I DETERMINED THRU NODS, GESTURES AND NOTES THAT PT WAS PLACED ON KEPRA APPROX ONE MONTH AGO. HE STATES HE PASSES OUT EVERY TIME HE TAKES IT. WE DISCUSSED OTHER CAUSES THAT MAY HAVE CONTRIBUTED TO PASSING OUT OR FEELING FAINT LIKE DEHYDRATION. I EXPLAINED THAT HE HAS BEEN RECEIVING KEPRA AT THE HOSPITAL AND HAS NOT PASSED OUT FROM IT. I ASKED IF HE WOULD BE WILLING TO TAKE IT WHILE IN A SUPERVISED SETTING, WITH ADEQUATE NUTRITIONAL AND FLUID INTAKE PER IV TO DETERMINE IF IT IS THE KEPRA CAUSING FAINTNESS. PT REPEATS AND POINTS TO THE WRITTEN NOTE SEVERAL TIMES, "I WON'T TAKE THE KEPRA". PT IS AGREEABLE TO TRYING A DIFFERENT ANTI-SEIZURE MEDICATION BUT REPEATS THAT HE WILL NOT TAKE KEPRA. I ALSO ADDRESSED HIS CODE STATUS. THERE WERE NO FAMILY MEMBERS/FRIENDS PRESENT FOR OUR CONVERSATION. WE REVIEWED HIS CURRENT FULL CODE STATUS. WHEN REVIEWING THIS HE WROTE ON HIS PAPER, "HEAVY". I ACKNOWLEDGED HIS FEELINGS/GRIEF AND ASKED IF HE WOULD LIKE CONTINUE THE CONVERSATION AT A LATER TIME. PT INDICATED WITH A NOD, YES. HE IS ABLE TO TELL ME THAT HIS CURRENT PAIN MEDICATIONS ARE WORKING WELL FOR HIM. HE INDICATED HE WAS TOO WARM AND THE MIST ON HIS TRACH COLLAR WAS TOO WARM. HE IS FLUSHED AND PINK. ROOM TEMP LOWERED AND COOL WET CLOTH GIVEN TO HIM, WHICH HE PLACED ON HIS NECK AND THEN FOREHEAD A SECOND TIME. RT CAME IN AND LOWERED TEMP OF MIST ON COLLAR. PT DOES NOT APPEAR TO HAVE A PCP THAT COULD FOLLOW UP CONVERSATION ON CODE STATUS AFTER D/C. HE DOES SEE DR GOODEN, DR OBANDO. REPORT ON MY VISIT GIVEN TO RN AND DR GEE. DISCUSSED FINDING PCP THRU CARE MANAGEMENT. BELIEVES THIS IS BEING WORKED ON ALREADY. DISCUSSED PT'S WILLINGNESS TO TRY A DIFFERENT ANTI-SEIZURE BUT UNWILLINGNESS TO TAKE KEPRA AGAIN. [facility] TO REMAIN AVAILABLE FOR S/S MANAGEMENT AND ADVANCED CARE PLANNING.
--- NOTE | 2018-12-25 16:32 | NUR ---
SHIFT SUMMARY- URINARY OUTPUT HAS BEEN LOW, VOIDED 250ML VERY DARK URINE AT 1130, BLADDER SCAN PERFORMED POST VOID WITH 63ML NOTED. HASN'T HAD DOCUMENTED BM SINCE 12/21. HAS ORDER FOR DULCOLAX SP, BUT PATIENT REFUSING. MEDICATED FOR PAIN AROUND 1500 WITH GOOD RESULTS (FENTANYL 50MG).
[2018-12-26 04:09] LABS: Anion Gap 4 mmol/L (6-16); Blood Urea Nitrogen 13 mg/dL (8-24); Bun/Creatinine Ratio 22.5 (12.0-20.0); CO2, Blood 28 mmol/L (21-32); Calcium, Blood 9.4 mg/dL (8.5-10.1); Chloride, Blood 99 mmol/L (98-108); Creatinine, Blood 0.58 mg/dL (0.60-1.20); Glomerular Filtration Rate >60 (60-); Glucose, Blood 108 mg/dL (70-99); Magnesium, Blood 1.3 mg/dL (1.6-2.4); Phosphorus, Blood 2.6 mg/dL (2.5-4.9); Potassium, Blood 3.8 mmol/L (3.5-5.5); Sodium, Blood 131 mmol/L (136-145)
--- NOTE | 2018-12-26 05:12 | NUR ---
SHIFT SUMMARY PT RESTING IN ROOM COMFORTABLY AT THIS TIME. NO ACUTE CHANGES IN STATUS T/O NIGHT. PT SLEPT IN SHORT BURSTS. RESP EVEN UNLABORED ON BLOW BY HUMIDIFIED O2 AT TRACH. SATS >92%. PT DENIED CP OR SOB. DID HAVE PRODUCTIVE COUGH AND PT SELF SUCTIONS. PT WAS MEDICATED MULTIPLE TIMES T/O FOR HEAD/JAW PAIN. PT WAS ABLE TO USE URINAL IN BED W/O ASSISTANCE AND CALLED APPROPRIATELY FOR EMPTYING. DENIED OTHER NEEDS. CONTINUOUS TUBE FEEDINGS T/O NIGHT. PT MELE WELL, DENIED ANY ABD PAIN. RESIDUALS <10ML. CALL LIGHT IN REACH.
--- NOTE | 2018-12-26 10:23 | NUR ---
ASSUMPTION OF CARE 0700 PT RESTING IN BED, REPORTS PAIN IN NECK/HEAD, TO MEDCIATE PER EMAR. NO OTHER S/SX OF DISTRESS NOTED. 745- PT RESTING IN BED. O2 SATURATIONS 86-87%, NOTIFIED RT, INCREASED FROM 21% TO 28% VIA BLOWBY, O2 INCREASSED TO 94%. PT REPROTS PAIN 10/10, MEDICATED PER EMAR WITH POSTIVE RESULTS. PT A&O, CALM AND COOPERATIVE WITH CARE. WILL CONTINUE TO MONITOR. 0915- PT A&O, CALM AND COOPERATIVE WITH CARE. PT RESTING IN BED, ASSIST WITH REPOSITION. PT O2 %95% ON 28% VIA BLOWBY, LS DIM, BREATHING EVEN AND UNLABORED. PT REPORTS PAIN 5/10. PT DENIES NAUSEA. 60ML RESIDUAL, FLUSH WITH MED A 80ML IN AND CONTINOUS FEEDING. NO DRAINAGE NOTED AT PEG TUBE SITE. VSS. WILL CONTINUE TO MONITOR.
--- NOTE | 2018-12-26 20:07 | NUR ---
SHIFT SUMMARY PT A&Ox4, CALM AND COOPERATIVE WITH CARE. NONVERBAL AT BASELINE, HX JAW/NECK CANCER. PT REPORTS PAIN IN JAW/NECK/HEAD T/O SHIFT, MEDICATED x2 WITH FENTNYL AND x1 WITH [place], WITH POSITIVE RESULTS. PT DENIES SOB, THIS AM PT FOUND TO BE SATURATING AT 86-87% ON HUMIDIFIED 21% VIA BLOWBY, PT TITRATED TO 28% SPO2 >94. PRODUCTIVE COUGH, PT SELF SUCTIONS FOR MAJORITY OF SHIFT, TRACHE SUCTIONED x2. CONTINUOUS TUBE FEEDING AT 55ML/HR WITH q4HR 100ML FLUSH, RESIDUAL CHECKS <250ML. PT DENIES [place]UEA OR ABD PAIN T/O SHIFT. CHEST XRAY COMPLETED. PT ENCOURAGED TO REPOSITION, UP IN CHAIR THIS AM. NO BM NOTED, BOWEL CARE ORDERED FOR THIS EVENING. VSS. NO OTHER ACUTE CHANGES NOTED DURING SHIFT. REPORT GIVEN TO ONCOMING RN.
[2018-12-27 05:13] LABS: Anion Gap 5 mmol/L (6-16); Blood Urea Nitrogen 13 mg/dL (8-24); Bun/Creatinine Ratio 21.8 (12.0-20.0); CO2, Blood 31 mmol/L (21-32); Calcium, Blood 9.5 mg/dL (8.5-10.1); Chloride, Blood 97 mmol/L (98-108); Glomerular Filtration Rate >60 (60-); Glucose, Blood 108 mg/dL (70-99); Magnesium, Blood 1.7 mg/dL (1.6-2.4); Phosphorus, Blood 2.7 mg/dL (2.5-4.9); Sodium, Blood 133 mmol/L (136-145)
--- NOTE | 2018-12-27 05:19 | NUR ---
END OF SHIFT SUMMARY NO ACUTE CHANGES THIS SHIFT. VSS. PT CONTINUES WITH BLOWBY 28% TO TRACH. TRACH CLEANING HAS BEEN A CONINUOUS PROCESS DUE TO THE AMOUNT OF TENACIOUS SECRETIONS HE HAS DISPLACED. PT NOT WANTING INLINE SUCTION STILL AND HAS RESORTED TO ORAL SUCTIONING. PT HAS BEEN SUCCESFUL WITH THIS AT MAINTAINING AIRWAY BUT LUNG/BREATHING SOUNDS CONTINUE TO BE VERY COARSE AND LOOSE. BLOWBY END PIECE CHANGED X2 THIS SHIFT DUE TO EXCESS SECRETIONS. OPPSITE COVERING TRACH SUTURES HAD EXCESSIVE DRAINAGE UNDERNEATH IT. THIS WAS REPLACED, AREAS CLEANED AND DRIED. CONTINUOUS FEEDING REMAIN, RESIDUALS NEVER MORE THAN 110. TUBE FEEDING TUBES REPLACED ALONG WITH BAGS. CBG'S REMAIN NORMAL. POWERGLIDE REMAINS PATENT. SECRETIONS HAVE NOT SHOWN BLOOD TINGED, WHITE/BADILLO IN COLOR. PT REMAINS WITHOUT BM, BOWEL CARE INITATED. PT HAS BEEN ABLE TO COMMUNICATENEEDS TO THIS NURSE VIA WHITEBOARD, MOUTHING WORDS, AND GEASTURES. USES CALL LIGHT APPROPRIATELY. WILL CONTINUE TO MONITOR PT UNTIL SHIFT CHANGE.
--- NOTE | 2018-12-27 12:27 | NUR ---
NOTIFIED DR MCNALLY OF HYPOTENSIVE BP, CONTINUES TO MONITOR BP IN 30 MINS
--- NOTE | 2018-12-27 18:38 | NUR ---
SHIFT SUMMARY PT A&Ox4, CALM AND COOPERATIVE WITH CARE. PT NONVERBAL, USES GESTURES AND PEN/PAPER FOR COMMUNICATIONS. PT RESTING IN BED FOR MAJORITY OF SHIFT, REPOSITIONED SELF, UP IN CHAIR THIS AFTERNOON. 1 PERSON ASSIST DUE TO WIRES/CORDS. PT REPORTS PAIN IN NECK, JAW, FACE, MEDICATED PER EMAR WITH POSITIVE RESULTS. NEW TRACHE IN PLACE, BLOYBY AT 28%, SPO2 >92%. LARGE AMOUTN OF SECRETIONS, PT SELF SUCTIONS, TRACH CARE AND SUCTIONS COMPELTED ALLOWED BY PT. PT EDUCATED ON TRACHE CARE. PEG TUBE IN PLACE, PT TRANSITIONING TO BOLUS FEEDING, APPEARS TO BE TOLERATING WELL. VSS. NO OTHER ACUTE CHANGES NOTED DURING SHIFT. WILL CONTINUE TO MONITOR UNTIL REPORT GIVEN TO ONCOMING RN.
--- NOTE | 2018-12-28 04:56 | NUR ---
END OF SHIFT SUMMARY NO ACUTE CHANGES THIS SHIFT. VSS. TRACGH BEING CLEANED T/O SHIFT. PT'S TRACH OUTPU CONSIDERABLY LESS THAN LAST NIGHT. NO BM SO FAR DESPITE COLACE, MILK OF MAG, AND BISACODYL SUPPOSITORY. PT CONTINUING TO SELF SUCTION BUT ALSO APPEARS TO BE LESS WARY OF TRACH AND MORE WILLING TO WORK WITH IT. CONTINUES ON BLOWBY, WILL SPEAK TO RT REGARDING THIS AND PT SATURATIONS. PT UP TO TOILET TODAY WITH PERSON SBA. OTHERWISE, WILL CONTINUE TO MONITOR PT UNTIL SHIFT CHZNGE. CALL LIGHT WITHIN REACH. BED IN LOWEST POSITION.
--- NOTE | 2018-12-28 15:23 | NUR ---
Second case conference with Tubular Riveter re: dc planning and after care. Made visit to pt in PCU 10. He was watching TV, mom at bedside holding his hand. Introduced myself to mom. Spoke with pt about new anti-seizure medication. He indicates it is going well with no problems noted from it. Pt appears comfortable and denies pain at this time. We reviewed Advanced directives again and I left a blank with him to complete if he would like and our number to call if he would like help. Mom asked for one for her also and I provided it. Pt looks so much more settled, comfortable and less anxious than he did on Friday when I saw him last. He communicated with nodding, shaking head and mouthing words. He did not write on his pad today. Plan to follow up with him later this week. Pt agreeable to that plan.
--- NOTE | 2018-12-28 17:05 | NUR ---
SHIFT SUMMARY PT RESTING IN BED THROUGHOUT THE DAY. VSS. ALERT AND ORIENTED X3. C/O 7-10/10 PAIN IN NECK / HEAD, MEDICATED WITH PRN PAIN MEDS, LIDOCAINE PATCHES X2 TO BACK / NECK. LUNG SOUNDS COARSE THROUGHOUT, NSR WITH PVCs RATE 79. PEG TUBE BOLUS FEEDINGS DONE TODAY, 5 ML RESIDUAL NOTED AT ALL CHECK, PT TOLERATED WELL. PT DENIES NAUSEA OR BELLY PAIN. TRACH INTACT, LARGE AMOUNT OF YELLOW SPUTUM NOTED THIS AM ON INITIAL ASSESSMENT. PT SELF SUCTIONING NEEDED. PT AMBULATED TO BATHROOM TODAY, BM NOTED TO BE FORMED, BUT SOFT. FAMILY AT BEDSIDE OFF AND ON TODAY. WILL CONTINUE TO MONITOR.
--- NOTE | 2018-12-29 08:05 | NUR ---
END OF SHIFT SUMMARY NO ACUTE CHANGES THIS SHIFT. VSS EXCEPT PERIOD OF DESAT INTO 80% WHICH REQUIRED INLINE TRQACH SUCTIONING X 2. SATS REBOUNDED >94%. PT HAS BEEN OFF AND ON BLOWBY 28% T/O NIGHT. OUTPUT OF TRACH CONTINUES TO DECREASE IN AMOUNT. PT DOING WELL ORALL SUCTIONING AND KEEPING SITE CLEAN. PAIN CONTINUES TO BE AN ISSUE, SEE EMAR. PT HAS BEEN UP OUT OF BED THIS SHIFT. BOLUS FEED GIVEN, TOLERATED ALL FLUIDS WELL INTO PEG TUBE. CAPS CHANGED ON POWERGLIDE. PT HAS CONTINUED TO BE ABLE TO COMMUNICATE NEEDS. CALL LIGHT WITHIN REACH. Report given to oncoming rn.
--- NOTE | 2018-12-29 08:50 | NUR ---
UPON INITIAL ASSESSMENT, PT BIOX WAS READING IN THE 70s, BLOWBY AT 28% PLACED BACK ON PT. TRACH SUCTIONED X2 WITH LARGE AMOUNT OF SPUTUM OUT. PT THEN REFUSED ANY FURTHER SUCTIONING. BLOWBY OXYGENATION INCREASED TO 60% AND PTs SATURATIONS BACK UP TO >90%. BLOWBY DECREASED TO 28%, PT SATURATING WELL.
--- NOTE | 2018-12-29 18:46 | NUR ---
SHIFT SUMMARY PT RESTING IN BED THROUGHOUT THE DAY. VSS. ALERT AND ORIENTED X3. C/O 7-12/31 HEAD / NECK PAIN TODAY, MEDICATED WITH PRN PAIN MEDS. LUNG SOUNDS COARSE THROUGHOUT, HAD SOME LOW SATURATION READING THIS AM, BUT PT DID NOT APPEAR TO BE IN DISTRESS, PT SUCTIONED X2 WITH CLEAR / YELLOW SECRETIONS OUT, PT TOLERATED FAIRLY WELL, BUT REFUSED SUCTIONING AFTER THE 2ND TIME. BLOWBY HUMIDITY INCREASED TO 60%, BUT THEN DECREASED BACK TO 28%, SATURATIONS RUNNING >92%. TRACH CARE COMPLETE, INNER CANNULA REPLACED. PEG TUBE FEEDINGS TO GRAVITY WITH NO PROBLEMS. GASTRIC RESIDUALS CHECKED, NO RESIDUALS NOTED, PT TOLERATING 1 CAN 5 TIMES A DAY WITH NO PROBLEMS. EDUCATION / DEMONSTRATION PROVIDED TO PT AND FAMILY ABOUT TUBE FEEDINGS, FAMILY ASKING APPROPRIATE QUESTIONS AND PAYING ATTENDTION. TRACE EDEMA TO BLE. VOIDING PER URINAL. WILL CONTINUE TO MONITOR.
--- NOTE | 2018-12-30 05:32 | NUR ---
0532: PT REQUEST BOLUS PEG TUBE FEEDING AND IS GIVEN AM MEDS WITH. PT GRAVITY BOLUS FED 250ML ISOSOURCE WITH 50ML FLUSH BEFORE AND 50ML FLUSH AFTER MEDS. PT TOLERATED WELL AND DENIES ABD PAIN, SOB OR BLOATED SENSATION.
--- NOTE | 2018-12-30 05:56 | NUR ---
SUMMARY: POD 7 TRACH AND PEG PLACEMENT WITH PNEUMONIA; FOLLOWED BY DR. OBANDO, DR. RESENDEZ AND HOSPITALIST SERVICE. VSS, AFEBRILE, MAINTAINS SPO2 92% OR BETTER ON 28% HUMIDIFIED BLOWBY. PT MANAGES TRACH AND AIRWAY SECRETIONS WITH RN ASSIST X3 PRODUCING MODERATE AMOUNT OF THICK SPUTUM. TOLERATES MEDS, FLUSHES AND ISOSOURCE FEEDING VIA PEG TUBE WELL THIS SHIFT. PAIN WELL CONTROLLED WITH 2 TABS NORCO X2 THIS SHIFT. PT REMAINS A&O AND ABLE TO MAKE WISHES KNOW. ANTICIPATE PT/OT AND CONTINUED ANTIBIOTICS.
--- NOTE | 2018-12-30 17:06 | NUR ---
The pt was transferred in the bed to room 355, Lady Lam was receiving RN.
--- NOTE | 2018-12-30 17:57 | NUR ---
PT TRANSFERRED TO ROOM 355 FROM PCU 10. TRACH COLLAR REPLACED. ON 28% HUMIDIFIED O2. NO S/S OF RESP DISTRESS NOTED. SISTER AT BEDSIDE ON TRANSFER. SETTLED IN TO BED AND CALL BUTTON PLACED WITHIN REACH. QUESTIONS ANSWERED. PAPER AND PEN AT PTS BEDSIDE FOR COMMUNICATION.
--- NOTE | 2018-12-30 19:23 | NUR ---
spoke with dr. chávez on phone prior to pt coming to floor about blood pressure. dr. chávez reports she would prefer sbp to not go much lower than 180 and just give hydralazine and moniter and call her if no change. arrived at 1845
--- NOTE | 2018-12-31 06:01 | NUR ---
SHIFT SUMMARY AOX4. DIFFICULT COMMUNICATING WITH TRACH, PT DOES HAVE TABLET TO WRITE. LS COARSE, DENIES SOB. NO C/O NAUSEA. PT TOLERATED BOLUS FEEDING WELL THIS AM. 240ML (0600, 0900, 1200, 1500, 1800). NORCO GIVEN FOR HEADACHE @ 2145 AND 0545. COCCYX RED BUT NOT OPEN. SBA. O2 AT 28% HUMIDITY. SUCTIONING PER RT. POWERGLIDE IN L UA DRESSING CHANGED. SCDS. BED ALARM FOR SAFETY. PT/OT/ST. PT HOPES TO DC TODAY.
--- NOTE | 2018-12-31 16:52 | NUR ---
PATIENT ENCOURAGED TO KEEP HUMIDIFIER OVER TRACH HE CONTINUES TO GET CLUMPS OUT WITH SUCTION AND CAUGHING. HE HAS ASKED FOR A HAD PAIN MEDS PER EMAR. TRACK AND PEG BOTH PATENT. NO ACUTE CHANGES. THIS NURES EDUCATED MOTHER REGARDING PEG TUBE SHE IS HIS PCG. CALL LIGHT WITHIN REACH.
--- NOTE | 2019-01-01 05:22 | NUR ---
SHIFT SUMMARY PTS LUNGS SOUND COARSE IN ALL ARMENDARIZ, COUGHING UP MODERATE AMOUNT OF WHITE PHLEGM. PREFERS TO SELF SUCTION WITH THE AIDE OF A MIRROR. PT TOLERATING FEEDING AND MEDICATION THROUGH PEG TUBE WELL, FLUID FLOWS FREELY THROUGH PEG. PRN NORCO GIVEN AT 0024 FOR GENERALIZED BODY PAIN, WAS EFFECTIVE AND PT FELL ASLEEP. BED IN LOWEST POSITION WITH BRAKES LOCKED. CALL LIGHT AND BELONGINGS WITHIN REACH. REPORT GIVEN TO ONCOMING RN.
--- NOTE | 2019-01-01 17:40 | NUR ---
PATIENT CONINUES TO TOLERATE PEG FEEDINGS WELL. WHEN SO IS IN ROOM THIS NURSE EDUCATES HER ON TUBE FEEDINGS PATIENT IS TO DC HOME WITH HER. HE HAS BEEN BETTER WITH KEEPING HUMIDIFIED AIR CLOSE TO TRACH WHICH HAS HELPED DECREASE HIS CLOTS HE HAD BEEN DEALING WITH YESTERDAY. PATIENT IS COMPLIANT AND FRIENDLY. HE IS ABLE TO COMMUNICATE WITH SPEAK VALVE ON. NO ACUTE CHAGNES, CALL LIGHT CLOSE.
--- NOTE | 2019-01-02 06:24 | NUR ---
SHIFT SUMMARY: A/O x4. Skin warm and dry. Remained in bed sleeping most of the night. C/O neck pain and general pain- norco given x 2 with little effect. Stated he can tolerate his pain level, but would rather not have to. Encouraged pt to discuss with MD this morning. Slept intermittently. Kept humidified [address] over trach. Slight erythema observed at trach suture sites. Small amount of dried sang drainage around tracheostomy. Used passe karen valve several times to speak tonight. 02 92-97% tonight. Refused deep trach suctioning each time it was offered, choosing instead to self-suction using the yankauer. Coarse rhonchi auscultated to bilateral lobes. Peg site without erythema. TF bolus administered without difficulty. Richie well and receptive to education. Call button placed within reach. No complaints at this time.
--- NOTE | 2019-01-02 09:40 | NUR ---
PATIENT DID NOT EAT BREAKFAST THIS SHIFT DUE TO BEING NPO AT THIS TIME. RN NOTIFIED.
--- NOTE | 2019-01-02 14:16 | NUR ---
PATIENT DID NOT EAT LUNCH THIS SHIFT DUE TO BEING NPO AT THIS TIME.
--- NOTE | 2019-01-02 17:51 | NUR ---
SHIFT SUMMARY: PT IS A/O X 4 AND C/O CHRONIC PAIN FOR WHICH PAIN MEDS WERE GIVEN AND PT REPORTS ARE MILDLY EFFECTIVE. PT TRACH IS IN PLACE AND RT ASSISTED WITH SUCTION AND REPLACEMENT OF A NEW INNER CANULA TODAY. PEG TUBE IS PATENT AND ALL TUBE FEEDINGS WERE GIVEN ORDERED WITH NO ISSUES. PT REMAINS NPO. LUNGS ARE COARSE AND PT REMAINS IN AN UPRIGHT POSTION WITH HOB RAISED. PT HAS ORAL SUCTION AT BEDSIDE. PT USES URINAL AT BEDSIDE FOR VOIDING. PT HAS HAD FAMILY VISITING ON AND OFF THROUGHOUT THE DAY. PT USES CALL LIGHT APPROPRIATELY WHEN NEEDED.
--- NOTE | 2019-01-02 18:00 | NUR ---
PATIENT DID NOT EAT DINNER THIS SHIFT DUE TO BEING NPO AT THIS TIME.
--- NOTE | 2019-01-03 04:48 | NUR ---
SHIFT SUMMARY: Temp 99.9, BP 96/52. 02 95%. Pt up amb to restroom with cane and SBA. Communicating needs. Allowed RT to deep suction trach tonight. Uses yankauer as needed independently. Coarse inspiratory and expiratory rhonchi auscultated throughout lungs. Yellow-green tenacious sputum hanging from trach during ambulation to bathroom. Humidified air remains in place over trach. Pepper tracheostomy tissue without erythema. Suture instertion sites on anterior neck irritated appearing. GT stoma site without erythema. Peg tube flushing well and pt tolerates boluses without difficulty. Tramadol administered at the beginning of shift for reports of neck pain, but partially pt wanted medication in preparation for suctioning. No complaints of pain for the rest of the night after tramadol administered. Has slept the majority of the night. Call button in reach.
--- NOTE | 2019-01-03 08:54 | NUR ---
PATIENT DID NOT EAT BREAKFAST THIS SHIFT DUE TO BEING NPO AT THIS TIME.
--- NOTE | 2019-01-03 13:16 | NUR ---
PATIENT DID NOT EAT LUNCH THIS SHIFT DUE TO BEING NPO AT THIS TIME.
--- NOTE | 2019-01-03 17:25 | NUR ---
SHIFT SUMMARY: PT IS A/O X 4 AT BASELINE WITH ONGOING CHRONINC PAIN. PAIN MEDS WERE GIVEN ORDERED. ALL TUBE FEEDINGS WERE GIVEN SCHEDULED WITH NO ISSUES. LUNGS REMAIN COARSE AND RT WAS NOTIFIED FOR SUCTION. PT CONTINUES TO KEEP ORAL SUCTION AT BEDSIDE. PT CONTINUES TO USE URINAL AT THE BEDSIDE. PT HAS HAD VISITORS ON AND OFF THROUGHOUT THE DAY. PT IS ABLE TO MAKE HIS NEEDS KNOWN AND USES HIS CALL LIGHT WHEN NEEDED.
[2019-01-04 06:08] LABS: BASOPHILS ABSOLUTE AUTO 0.11 K/mm3 (0.00-0.23); BASOPHILS PERCENT AUTO 1 % (0-2); EOSINOPHILS ABSOLUTE AUTO 0.28 K/mm3 (0.00-0.68); EOSINOPHILS PERCENT AUTO 3 % (0-6); Hematocrit 24.9 % (37.0-53.0); Hemoglobin 8.2 g/dL (13.5-17.5); IMMATURE GRAN ABSOLUTE AUTO 0.08 K/mm3 (0.00-0.10); IMMATURE GRAN PERCENT AUTO 1 % (0-1); LYMPHOCYTES ABSOLUTE AUTO 1.14 K/mm3 (0.84-5.20); LYMPHOCYTES PERCENT AUTO 10 % (21-46); MONOCYTES ABSOLUTE AUTO 0.96 K/mm3 (0.16-1.47); MONOCYTES PERCENT AUTO 9 % (4-13); Mean Corpuscular HGB 31.9 pg (26.0-34.0); Mean Corpuscular HGB Conc 32.9 g/dL (31.5-36.5); Mean Corpuscular Volume 97 fL (80-100); NEUTROPHILS ABSOLUTE AUTO 8.48 K/mm3 (1.96-9.15); NEUTROPHILS PERCENT AUTO 77 % (41-73); Platelet Count 456 K/mm3 (150-400); RDW Coefficient Variation 15.8 % (11.7-14.2); RDW Standard Deviation 56.2 fL (35.1-46.3); Red Blood Cell Count 2.57 M/mm3 (4.30-5.90); White Blood Cell Count 11.05 K/mm3 (4.00-11.30)
--- NOTE | 2019-01-04 06:12 | NUR ---
SHIFT SUMMARY PT PLEASANT AND COOPERATIVE. TRACH AND PEG TUBE IN PLACE. PT SELF SUCTIONS TRACH AND INTERMITTENTLY ALLOWS RT TO DEEP SUCTION TRACH. SPUTUM PRODUCTION APPEARS TO BE LESS THIS EVENING AND LUNGS SOUND LESS COARSE. PT DOES CONTINUE TO HAVE A MODERATE AMOUNT OF BADILLO SPUTUM FROM TRACH. HUMIDIFIER IN PLACE OVER TRACH. RT MANAGING. PT IN AT THIS TIME AND REPLACING TRACH COLLAR. PEG TUBE SITE WITH NO S/S OF INFECTION. GRAVITY BOLUS FEEDS 5 X'S A DAY. 0600 FEED GIVEN THIS AM. PT TOLERATED WELL. NO RESIDUAL PRIOR TO FEED. PT AMBULATING WELL WITH SBA. PT CONTINUES TO REPORT PAIN IN NECK/THROAT. MEDICATED X'S 2 THIS EVENING WITH 2 TABS 5/325 NORCO. NO ACUTE CHANGES THIS SHIFT.
[2019-01-04 06:25] LABS: Alanine Aminotransfer (ALT/SGP 16 U/L (12-78); Albumin, Blood 2.5 g/dL (3.4-5.0); Albumin/Globulin Ratio 0.6 (0.8-1.8); Alk Phos 56 U/L (50-136); Anion Gap 6 mmol/L (6-16); Aspartate Aminotrans (AST/SGOT 15 U/L (12-37); Bilirubin, Total 0.2 mg/dL (0.1-1.0); Blood Urea Nitrogen 15 mg/dL (8-24); Bun/Creatinine Ratio 23.6 (12.0-20.0); CO2, Blood 29 mmol/L (21-32); Calcium, Blood 9.3 mg/dL (8.5-10.1); Chloride, Blood 94 mmol/L (98-108); Creatinine, Blood 0.64 mg/dL (0.60-1.20); Globulin, Blood 4.4 g/dL (2.2-4.0); Glomerular Filtration Rate >60 (60-); Glucose, Blood 88 mg/dL (70-99); Magnesium, Blood 1.7 mg/dL (1.6-2.4); Sodium, Blood 129 mmol/L (136-145); Total Protein, Blood 6.9 g/dL (6.4-8.2)
--- NOTE | 2019-01-04 19:25 | NUR ---
SHIFT SUMMARY: NO ACUTE CHANGES TO REPORT THIS SHIFT. PT A&O; CALM AND COOEPRATIVE WITH CARE. PT HX THROAT CA; TRACHEOSTOMY; SUCTION SET UP. PEG TUBE; BOLUS FEEDINGS; ALL MEDS CRUSHED THROUGH TUBE. MEDICATED FOR THROAT PAIN PER EMAR. PT UP WITH NURSE ASSIST; PT USES CANE FROM HOME. AWAITING PLACEMENT IN LONG-TERM CARE. REPORT GIVEN TO ONCOMING RN.
--- NOTE | 2019-01-05 04:46 | NUR ---
SHIFT SUMMARY: 63 Y/O MALE RESTED COMFORTABLY ALL SHIFT WHILE WEARING O2 MASK OVER TRACHEOSTOMY, NO RESPIRATORY DISTRESS NOTED OR VOICED, C/O THROAT/JAW PAIN RATED 6/10 WITH TRAMADOL 50MG GIVEN TWICE AND NORCO 5/325MG GIVEN TWICE VIA PEG TUBE WITH PAIN RELIEF VOICED, ABLE TO VOICE NEEDS BY WRITING ON PIECE OF PAPER, ZERO RESIDUALS NOTED VIA PEG TUBE, BED LOW POSITION, CALL LIGHT AT SIDE.
[2019-01-05 05:35] LABS: Hematocrit 23.7 % (37.0-53.0); Hemoglobin 7.9 g/dL (13.5-17.5); Mean Corpuscular HGB 32.4 pg (26.0-34.0); Mean Corpuscular HGB Conc 33.3 g/dL (31.5-36.5); Mean Corpuscular Volume 97 fL (80-100); Mean Platelet Volume 10.2 fL (9.1-12.4); Platelet Count 456 K/mm3 (150-400); RDW Coefficient Variation 15.6 % (11.7-14.2); RDW Standard Deviation 55.8 fL (35.1-46.3); Red Blood Cell Count 2.44 M/mm3 (4.30-5.90); White Blood Cell Count 8.12 K/mm3 (4.00-11.30)
[2019-01-05 05:53] LABS: Percent Saturation 10.3 % (20.0-50.0)
[2019-01-05 05:54] LABS: Anion Gap 5 mmol/L (6-16); Blood Urea Nitrogen 17 mg/dL (8-24); Bun/Creatinine Ratio 29.4 (12.0-20.0); CO2, Blood 29 mmol/L (21-32); Calcium, Blood 9.4 mg/dL (8.5-10.1); Chloride, Blood 95 mmol/L (98-108); Creatinine, Blood 0.58 mg/dL (0.60-1.20); Glomerular Filtration Rate >60 (60-); Glucose, Blood 79 mg/dL (70-99); Potassium, Blood 4.2 mmol/L (3.5-5.5); Sodium, Blood 129 mmol/L (136-145)
--- NOTE | 2019-01-05 19:25 | NUR ---
SHIFT SUMMARY PT RESTING QUIETLY AT START OF SHIFT. MEDICATED PRIOR TO DAY SHIFT. PT WITH THROAT AND NECK CANCER; RECENT PLACEMENT OF TRACH AND PEG TUBE. BOLUS FEEDS QID PER DIETARY. PT TOLERATING WELL. MEDS CRUSHED AND ADMIN THRU PEG PER EMAR. PER SHIFT REPORT, PT TO GO TO [facility] IN [place]. MULTIPLE FAMILY IN THRU OUT THE DAY. PT UP WITH PT/OT WALKING IN AND TO [facility]. PT UP A COUPLE OF TIMES DURING THE DAY. BED BATH GIVEN. MEDICATED PER EMAR THRU PEG. NO FURTHER NEEDS. CALL LT IN REACH.
--- NOTE | 2019-01-06 06:30 | NUR ---
Shift summary: Patient is A&Ox4, VS are stable, maintains SATs at 96-97% on 10L humidified 02 via trach. Patient is able to make needs known. Reporting chronic neck pain 10/31, hydrocodone was given x2 with good effect. Patient remains NPO, mouth care supplies at bedside.
[2019-01-06] MEDS ORDERED: ALBU2.5V5 INH (14:20)
[2019-01-06] MEDS ORDERED: Nicoderm Cq1 EAC1 TOP (14:21)
[2019-01-06] MEDS ORDERED: VALP250 PT (14:22)
[2019-01-06] MEDS ORDERED: Zegerid 20 MG1 EAC1 PT (14:22)
--- NOTE | 2019-01-06 15:45 | NUR ---
PT LEFT THE UNIT VIA GURNEY. PT TRANSFERING TO [facility]. CALLED RN AND GAVE REPORT. PT'S BELONGINGS SENT WITH HIM.
== END 2019-01-06 14:57 | disposition short-term general hospital (02) | DRG 4 ==
LOC: ORD 08:29 → ORSCMMR 11:45 → ORD 15:30 → MEDS 16:01 → PCU 16:01 → MEDS 22:13 → ICUE 12-23 11:55 → PCU 12-24 11:25 → MEDS 12-30 16:45
PROVIDERS: Internal Medicine; Otolaryngology; Surgery; ADMIT Family Medicine
PROC: 0B110F4 Bypass Trachea to Cutaneous with Tracheostomy Device, Open Approach (ICD-10-PCS; principal; 2018-12-23 11:15)
PROC: 0DH63UZ Insertion of Feeding Device into Stomach, Percutaneous Approach (ICD-10-PCS; 2018-12-23 11:15)
DX: A41.9 Sepsis, unspecified organism (principal); E43 Unspecified severe protein-calorie malnutrition; J96.01 Acute respiratory failure with hypoxia; J69.0 Pneumonitis due to inhalation of food and vomit; E87.1 Hypo-osmolality and hyponatremia; R13.12 Dysphagia, oropharyngeal phase; F17.210 Nicotine dependence, cigarettes, uncomplicated; I10 Essential (primary) hypertension; E03.9 Hypothyroidism, unspecified; D64.9 Anemia, unspecified; Z92.3 Personal history of irradiation; C76.0 Malignant neoplasm of head, face and neck; E83.52 Hypercalcemia; D47.3 Essential (hemorrhagic) thrombocythemia; E83.39 Other disorders of phosphorus metabolism; C32.0 Malignant neoplasm of glottis; I95.9 Hypotension, unspecified
CPT/HCPCS: 31720; 36415; 71046; 80048; 80053; 80069; 82728; 82947; 83540; 83550; 83605; 83735; 84100; 85025; 85027; 87040; 92597-GN; 94760; 97116; 97162; 97166; 97530; 97535; A9270-GY; C1751; C1769; J0360; J0690; J0696; J1650; J1953; J2001; J2250; J2704; J3010; J3475; J7030; J7050; J7060; J7120

== ENCOUNTER 2019-02-10 09:34 | Inpatient (IN) | payer OTHER ==
[~2019-02-10] VITALS: Ht 177.8 cm; Wt 60.0 kg
[~2019-02-10 09:34] MED LIST changes: +ALBU2.5V5 INH; +DULOXETINE HCL40 MG PO; +IBU800 MG PO; +METO25 PO; +Nicoderm Cq1 EAC1 TOP; +ONDA4 PO; +PERIDEX15 ML MM; +VALP250 PO; +Zegerid 20 MG1 EAC1 PT
[2019-02-10 10:01] LABS: BASOPHILS ABSOLUTE AUTO 0.08 K/mm3 (0.00-0.23); BASOPHILS PERCENT AUTO 0 % (0-2); EOSINOPHILS ABSOLUTE AUTO 0.04 K/mm3 (0.00-0.68); EOSINOPHILS PERCENT AUTO 0 % (0-6); Hematocrit 35.3 % (37.0-53.0); IMMATURE GRAN ABSOLUTE AUTO 0.08 K/mm3 (0.00-0.10); IMMATURE GRAN PERCENT AUTO 0 % (0-1); LYMPHOCYTES ABSOLUTE AUTO 2.74 K/mm3 (0.84-5.20); LYMPHOCYTES PERCENT AUTO 15 % (21-46); MONOCYTES ABSOLUTE AUTO 1.06 K/mm3 (0.16-1.47); MONOCYTES PERCENT AUTO 6 % (4-13); Mean Corpuscular HGB 30.6 pg (26.0-34.0); Mean Corpuscular HGB Conc 31.2 g/dL (31.5-36.5); Mean Corpuscular Volume 98 fL (80-100); Mean Platelet Volume 9.7 fL (9.1-12.4); NEUTROPHILS ABSOLUTE AUTO 14.17 K/mm3 (1.96-9.15); NEUTROPHILS PERCENT AUTO 78 % (41-73); Platelet Count 677 K/mm3 (150-400); RDW Coefficient Variation 14.3 % (11.7-14.2); White Blood Cell Count 18.17 K/mm3 (4.00-11.30)
[2019-02-10 10:06] LABS: PCO2 Arterial 47.9 mmHg (35-45); PO2 Arterial 43.8 mmHg (80-100); pH Blood Arterial 7.38 (7.35-7.45)
[2019-02-10] MEDS ORDERED: Morphine S20 MG/5 ML PO (10:14)
[2019-02-10] MEDS ORDERED: BISA10S PR (10:15)
[2019-02-10 10:17] LABS: Anion Gap 6 mmol/L (6-16); Blood Urea Nitrogen 35 mg/dL (8-24); Bun/Creatinine Ratio 42.2 (12.0-20.0); CO2, Blood 28 mmol/L (21-32); Calcium, Blood 10.5 mg/dL (8.5-10.1); Chloride, Blood 101 mmol/L (98-108); Creatinine, Blood 0.83 mg/dL (0.60-1.20); Glomerular Filtration Rate >60 (60-); Glucose, Blood 112 mg/dL (70-99); Potassium, Blood 5.1 mmol/L (3.5-5.5); Sodium, Blood 135 mmol/L (136-145)
[2019-02-10] MEDS ORDERED: SENN187 PO (10:17)
[2019-02-10] MEDS ORDERED: FERROUS SU220 MG/51 PT (10:18)
[2019-02-10] MEDS ORDERED: LEVE500 PO (10:20)
[2019-02-10] MEDS ORDERED: OXYC5 PO (10:21)
[2019-02-10] MEDS ORDERED: DOCU100 PO (10:21)
[2019-02-10] MEDS ORDERED: Cyclobenzaprine5 MG PO (10:23)
[2019-02-10] MEDS ORDERED: ENOX40I (10:24)
[2019-02-10] MEDS ORDERED: Zegerid 20 MG1 EACH PO (11:51)
[2019-02-10] MEDS ORDERED: Nicoderm Cq1 EAC1 TOP (11:51)
--- NOTE | 2019-02-10 15:08 | NUR ---
PT ARRIVED TO PCU 5 VIA GURNEY FROM ED. PT IS AWAKE A/OX3, COOPERATIVE WITH CARE, FOLLOWS COMMANDS WELL, REPORTS PAIN OK AT THIS TIME, LUNGS ARE COURSE T/O, RESP EVEN AND MILDLY LABORED SITTING UP IN BED, HAS A TRACH IN PLACE, HAS BEEN SUCTIONED IN ER WITH COPIOUS SECRETIONS, HRR, TELE IN PLACE RUNNING SR PER MONITOR SEE STRIP, NO EDEMA NOTED, PPP+2, CAP REFILL <3SEC, VS STABLE, AFEBRILE, IV SITE IS CLEAR AND PATENT, BTX4, ABD FLAT SOFT NONTENDER, VOIDS WITHOUT DIFF, SKIN C/W/D, GARRY, MARCIO, ORIENTED TO ROOM LAYOUT AND CALL SYSTEM, CALL LIGHT IN REACH.
--- NOTE | 2019-02-10 15:55 | NUR ---
Spoke with Lucius Segura and bedside nurse Nilda prior to Pt visit and discussed case. Pt's girlfriend Radha is present during visit. Pt reports being frustrated due to being in the hospital. Engaged in therapeutic discussion regarding goals of care. Discussed hospice as an option and educated on hospice philosophy. At the beginning of conversation Pt reports being unsure if he wants hospice. Pt continues to express frustration regarding not being home for 2 1/2 months. Validated Pt's concerns. Continued to listen to frustrations. After further discussion Pt reports his goal is to remain out of the hospital and wants to focus on quality of life. He reports that he is only willing to stay in the hospital overnight and is adamant about going home tomorrow. Pt reports he would like the hospice agency that can see him tomorrow. Pt reports no other concerns at this time. Discussed case with Lucius Segura. Imelda calls hospice agencies and [place] reports ability to admit Pt tomorrow. Relayed information regarding [facility] to Pt. Pt is agreeable with [facility]. Spoke with Dr Martinez and discussed Pt's wishes for hospice. Dr Martinez is agreeable for Pt to discharge home tomorrow with [facility]. Palliative Care will remain available.
--- NOTE | 2019-02-10 18:14 | NUR ---
pt resting quietly, did an evening feed, he tolerated well, is self suctioning with harvey, no further changes, anticipate discharge on hospice tomorrow. call light in reach.
--- NOTE | 2019-02-10 18:54 | NUR ---
Spiritual CAre inital note: Asked to meet with Shahram by critical care clinical nurse specialist. He was complimentary and appeared to enjoy conversation. He tells me he feels at peace with hospice plan. He says he knows God and beleives in something better after this life. He denied anger, concerns, fear. He just wants to be at home. I provided emotional affirmation, gentle university counselor, and prayer at bedside. Shahram smiled easily and expressed gratitude for visit. He denied pain. I will remain available.
--- NOTE | 2019-02-10 19:11 | NUR ---
Assumed care Care assumed at approx 1905, pt presents in bed, lying on left side, eyes open. VSS. Pt states to this RN "I am dying." This RN asked pt if he feels in distress at this moment. Pt denies acute distress but states "I will go home and ." Pt asked to clarify if he means with hospice. Pt states "yes, with hospice". Pt denies needs at this time. This RN spent time with pt listening to how he processed this emotional day. Pt in good spirits with this RN left room. Will continue to monitor and be available to pt for needs.
[2019-02-11 03:59] LABS: BASOPHILS ABSOLUTE AUTO 0.07 K/mm3 (0.00-0.23); BASOPHILS PERCENT AUTO 1 % (0-2); EOSINOPHILS PERCENT AUTO 1 % (0-6); Hematocrit 27.6 % (37.0-53.0); Hemoglobin 8.6 g/dL (13.5-17.5); IMMATURE GRAN ABSOLUTE AUTO 0.06 K/mm3 (0.00-0.10); IMMATURE GRAN PERCENT AUTO 0 % (0-1); LYMPHOCYTES ABSOLUTE AUTO 1.26 K/mm3 (0.84-5.20); LYMPHOCYTES PERCENT AUTO 8 % (21-46); MONOCYTES ABSOLUTE AUTO 0.87 K/mm3 (0.16-1.47); MONOCYTES PERCENT AUTO 6 % (4-13); Mean Corpuscular HGB Conc 31.2 g/dL (31.5-36.5); Mean Corpuscular Volume 96 fL (80-100); Mean Platelet Volume 9.8 fL (9.1-12.4); NEUTROPHILS ABSOLUTE AUTO 12.86 K/mm3 (1.96-9.15); NEUTROPHILS PERCENT AUTO 84 % (41-73); Platelet Count 580 K/mm3 (150-400); RDW Coefficient Variation 14.3 % (11.7-14.2); RDW Standard Deviation 50.4 fL (35.1-46.3); Red Blood Cell Count 2.87 M/mm3 (4.30-5.90); White Blood Cell Count 15.22 K/mm3 (4.00-11.30)
--- NOTE | 2019-02-11 04:13 | NUR ---
HBG VALUE OF 8.6 down from 11.0 this AM. MD notified and aware. Pt with no s/sx of active bleed, VSS, denies acute distress. No new orders recieved at this time. Will continue to monitor.
[2019-02-11 04:21] LABS: Alanine Aminotransfer (ALT/SGP 23 U/L (12-78); Albumin, Blood 2.6 g/dL (3.4-5.0); Albumin/Globulin Ratio 0.5 (0.8-1.8); Alk Phos 85 U/L (50-136); Anion Gap 4 mmol/L (6-16); Aspartate Aminotrans (AST/SGOT 9 U/L (12-37); Bilirubin, Total 0.3 mg/dL (0.1-1.0); Blood Urea Nitrogen 25 mg/dL (8-24); Bun/Creatinine Ratio 36.9 (12.0-20.0); CO2, Blood 28 mmol/L (21-32); Calcium, Blood 9.4 mg/dL (8.5-10.1); Chloride, Blood 104 mmol/L (98-108); Creatinine, Blood 0.68 mg/dL (0.60-1.20); Glomerular Filtration Rate >60 (60-); Glucose, Blood 102 mg/dL (70-99); Magnesium, Blood 1.5 mg/dL (1.6-2.4); Phosphorus, Blood 2.7 mg/dL (2.5-4.9); Potassium, Blood 3.8 mmol/L (3.5-5.5); Sodium, Blood 136 mmol/L (136-145); Total Protein, Blood 7.6 g/dL (6.4-8.2)
--- NOTE | 2019-02-11 05:49 | NUR ---
Shift Summary Pt with no acute events to note overnight. VSS. Breathing easy and unlabored on 3L NC which was titrated overnight down from 5L. Pt with home trach. Pt able to self suction with yankaur. Pt able to make needs known with call light. Voiding into urinal at bedside. Peg tube patent, flushed after medication administration. IVF infusing per orders throughout night. plan is for d/c home with hospice. No changes from initial shift assessment. will continue to monitor and report off to day RN.
[2019-02-11] MEDS ORDERED: ACET325 PO (09:08)
[2019-02-11] MEDS ORDERED: DOCU100 PO (09:10)
[2019-02-11] MEDS ORDERED: ALBU90OI INH (09:10)
--- NOTE | 2019-02-11 12:10 | NUR ---
DISCHARGE NOTE PT STABLE FOR DISCHARGE HOME WITH HOSPICE. DISCHARGE INSTRUCTIONS AND DISCHARGE MEDICATIONS REVIEWED WITH PT AND FAMILY. PT AND FAMILY VERBALIZE UNDERSTANDING AND DENY QUESTIONS. IV REMOVED. PT DISCHARGED ON OXYGEN VIA WHEELCHAIR WITH [facility]. BELONGINGS SENT HOME WITH GIRLFRIEND.
== END 2019-02-11 11:35 | disposition hospice, home (50) | DRG 871 ==
LOC: ER 09:34 → PCU 12:06
PROVIDERS: Emergency Medicine; Nurse Practitioner Acute Care; ADMIT Family Medicine
DX: A41.9 Sepsis, unspecified organism (principal); J96.01 Acute respiratory failure with hypoxia; E43 Unspecified severe protein-calorie malnutrition; J69.0 Pneumonitis due to inhalation of food and vomit; Z68.1 Body mass index [BMI] 19.9 or less, adult; Z51.5 Encounter for palliative care; Z85.819 Personal history of malignant neoplasm of unspecified site of lip, oral cavity, and pharynx; F17.210 Nicotine dependence, cigarettes, uncomplicated; Z92.3 Personal history of irradiation; E03.9 Hypothyroidism, unspecified; I10 Essential (primary) hypertension; G40.309 Generalized idiopathic epilepsy and epileptic syndromes, not intractable, without status epilepticus; Z99.81 Dependence on supplemental oxygen; D50.9 Iron deficiency anemia, unspecified; Z93.0 Tracheostomy status
CPT/HCPCS: 31720; 36415; 36600; 71045; 80048; 80053; 82550; 82803; 82947; 83605; 83735; 84100; 84145; 85025; 87040; 87070; 87077; 87185; 87186; 87205; 93005; 93010; 94760; 96361; 96365; 96367; 96375; 99285-25; J0696; J1650; J2543; J3010; J3370; J7030